=== PATIENT | female | born 1930 ===

== ENCOUNTER 2018-07-02 14:50 | Outpatient (CLI) | payer OTHER | END 2018-07-02 14:59 | disposition home or self-care (01) | LOC: RAD 14:50 | DX: S34.21XA Injury of nerve root of lumbar spine, initial encounter (principal) ==

== ENCOUNTER 2018-07-12 11:49 | Outpatient (CLI) | payer OTHER | END 2018-07-12 17:00 | disposition home or self-care (01) | LOC: MRI 11:49 | DX: M54.42 Lumbago with sciatica, left side (principal) | CPT/HCPCS: 72148 ==